=== PATIENT | female | born 1965 ===

== ENCOUNTER 2017-04-28 14:34 | Emergency (ER) | payer OTHER, BC ==
[2017-04-28 14:36] VITALS: BP 159/71; PULSE 83; RESP 20; TEMP 98.5; O2SAT 98
[2017-04-28 14:37] VITALS: BMI 30.9
[2017-04-28] MEDS ORDERED: Naproxen 500 MG TAB PO ONE ×2 (14:44→15:06)
--- NOTE | 2017-04-28 15:34 | RAD ---
PROCEDURE: Left Ankle Radiographs. HISTORY: trauma COMPARISON: Correlation made with concurrent radiographs of the left foot FINDINGS: BONES: Current study reveals a cortical disruption along the posterolateral border of the lateral malleolus best seen on oblique view consistent with fracture. Minor overlying soft tissue swelling. JOINTS: Normal. No osteoarthritis. Ankle mortise maintained. Talar dome intact SOFT TISSUES: Normal. OTHER FINDINGS: None. IMPRESSION: There is a fracture of the lateral malleolus the best appreciated on oblique view. Mild overlying soft tissue swelling.
--- NOTE | 2017-04-28 15:39 | RAD ---
PROCEDURE: Left Foot Radiographs. HISTORY: trauma COMPARISON: Correlation made with concurrent radiographs left ankle FINDINGS: BONES: Previously noted fracture distal aspect of the lateral malleolus is not well delineated on this exam. Mild diffuse circumferential soft tissue swelling at the level of the metatarsals. JOINTS: Mild hallux valgus deformity with overgrowth of the head of the 1st metatarsal and mild DJD 1st MTP joint. SOFT TISSUES: Normal. OTHER FINDINGS: None. IMPRESSION: Poor delineation previously noted fracture of distal lateral malleolus. No other fractures are identified. . Mild diffuse circumferential soft tissue swelling at the level of the metatarsals tissue
--- NOTE | 2017-04-28 16:50 | ED PDOC ---
HPI: General Adult Time Seen by Provider: 04/28/17 14:37 Chief Complaint (Nursing): Lower Extremity Problem/Injury History Per: Patient Additional Complaint(s): Pt. states earlier today she slipped on a slipper surface at work and she twisted her L ankle. Since then she's had L ankle pain. Denies numbness, tingling, other injury. Past Medical History Reviewed: Historical Data, Nursing Documentation, Vital Signs Vital Signs: Last Vital Signs Temp 98.5 F 04/28/17 14:35 Pulse 83 04/28/17 14:35 Resp 20 04/28/17 14:35 BP 159/71 H 04/28/17 14:35 Pulse Ox 98 04/28/17 14:35 - Family History Family History: States: No Known Family Hx - Home Medications Home Medications: Ambulatory Orders Medication Instructions Recorded Naproxen [Naprosyn] 500 mg PO BID PRN #30 tab 04/28/17 - Allergies Allergies/Adverse Reactions: Allergies Allergy/AdvReac Type Severity Reaction Status Date / Time No Known Allergies Allergy Verified 04/28/17 14:38 Review of Systems ROS Statement: Except As Marked, All Systems Reviewed And Found Negative Physical Exam - Physical Exam Appears: Positive for: Well, Non-toxic, No Acute Distress Skin: Positive for: Normal Color, Warm. Negative for: Rash Pulses-Dorsalis Pedis (L): 2+ Pulses-Dorsalis Pedis (R): 2+ Extremity: Positive for: Other (LEFT LOWER EXTREMITY: mild tenderness on lateral malleolus with minimal swelling; mild tenderness on dorsal left foot; no deformity or break in skin integrity) - ECG O2 Sat by Pulse Oximetry: 98 - Progress ED Course And Treament: Naproxen 500mg PO ordered. L ankle/foot x-ray: There is a fracture of the lateral malleolus the best appreciated on oblique view. Mild overlying soft tissue swelling. Pt. evaluated by [facility] resident, who discussed case w/ Dr. Gomez and arranged outpatient f/u for next week and also placed pt. in a splint. Disposition - Clinical Impression Clinical Impression: Left fibular fracture - Patient ED Disposition Is Patient to be Admitted: No - Disposition Referrals: Romeo Arnold MD [Staff Provider] - Aarti Gomez DPM [Staff Provider] - Disposition Time: 16:20 Condition: STABLE Additional Instructions: FOLLOW UP WITH DR. GOMEZ NEXT WEEK WITHOUT FAIL Prescriptions: Naproxen [Naprosyn] 500 mg PO BID PRN #30 tab PRN Reason: Pain Instructions: Naproxen (By mouth), Ankle Fracture (ED), Crutch Instructions (ED ), Splint Care (ED), RICE Therapy (ED) Forms: [facility] ([place]), [facility] ED School/Work Excuse
--- NOTE | 2017-04-29 21:54 | CP.PCM.CON ---
History of Present Illness - History of Present Illness History of Present Illness: Podiatry Consult Note - Dr. Gomez 51 year old female patient seen in ED concerning left ankle pain. Patient states earlier today while she was at work, she slipped and fell causing her to twist her left ankle. Denies loss of consciousness. Patient states she was immediately brought to the hospital for evaluation. Patient states she has not tried walking on her left lower extremity. Patient denies numbness, burning, or tingling to left leg. Patient denies N/V/F/D/C/SOB/calf pain. Offers no other pedal complaints at this time. Review of Systems - Review of Systems All systems: reviewed and no additional remarkable complaints except (as per HPI ) Past Patient History - Infectious Disease Hx of Infectious Diseases: None - Past Social History Smoking Status: Never Smoked - PSYCHIATRIC Hx Substance Use: No Meds Home Medications: Home Medication List Medication Instructions Recorded Confirmed Type Naproxen [Naprosyn] 500 mg PO BID PRN #30 tab 04/28/17 Rx Allergies/Adverse Reactions: Allergies Allergy/AdvReac Type Severity Reaction Status Date / Time No Known Allergies Allergy Verified 04/28/17 14:38 Physical Exam - Constitutional Appears: Well, Non-toxic, No Acute Distress - Extremities Exam Additional comments: LLE focused physical exam: VASC: DP and PT pulses palpable 2/4. CFT <3 seconds to all digits. Temperature gradient WNL. Nonpitting edema noted to lateral malleolus. NEURO: Gross sensation intact. DERM: No open lesions noted. Ecchymosis noted to lateral malleolus. Skin appears well hydrated. ORTHO: Pain on palpation lateral malleolus. Pain on palpation ATFL and CFL. No pain on palpation peroneal tendons. No pain on palpation medial malleolus. NO pain upon calcaneal squeeze. No pain on palpation Achilles tendon or Achilles insertion. No pain upon compression of tibia and fibula. Negative anterior drawer. Muscle strength deferred due to chief complaint. - Neurological Exam Neurological exam: Alert, Oriented x3 - Psychiatric Exam Psychiatric exam: Normal Affect, Normal Mood Results - Vital Signs Recent Vital Signs: Last Vital Signs Temp 98.5 F 04/28/17 14:35 Pulse 83 04/28/17 14:35 Resp 20 04/28/17 14:35 BP 159/71 H 04/28/17 14:35 Pulse Ox 98 10/13/17 16:54 Assessment & Plan - Assessment and Plan (Free Text) Assessment: 51 year old female with left lateral malleolus fracture 2/2 mechanical fall Plan: Patient seen and evaluated at bedside Discussed with attending, Dr. Gomez Left ankle XR reviewed: Fracture of lateral malleolus; ST swelling Posterior splint applied to LLE Crutches dispensed Recommend RICE Recommend Naprosyn prn pain Advised patient to keep splint clean/dry/intact until patient follows up with Dr. Gomez Patient to follow up with Dr. Gomez in [place] office in 1 week Stable from podiatry standpoint Thank you for allowing podiatry to partake in the care of this patient
== END 2017-04-28 17:21 | disposition home or self-care (01) ==
LOC: H.ER 14:34
DX: S82.402A Unspecified fracture of shaft of left fibula, initial encounter for closed fracture (principal); W19.XXXA Unspecified fall, initial encounter; Y99.0 Civilian activity done for income or pay